=== PATIENT | male | born 1960 | race Caucasian/White ===

== ENCOUNTER → 2018-05-30 09:41 | Outpatient (CLI) | payer OTHER, SELFPAY ==
--- NOTE | 2018-05-30 09:43 | DI.US.S_ITS ---
PROCEDURE: US CAROTID DOPPLER BI INDICATIONS: FACIAL NUMBNESS TECHNIQUE: Color and pulse Doppler interrogation was performed of both carotid systems, with image documentation and velocity measurements. COMPARISON: None. FINDINGS: Stenosis calculations are based on SRU (Society of Radiologists in Ultrasound) criteria. Right side: Brachial blood pressure: 155/92 mm Hg. Common carotid artery peak systolic velocity: 82 cm/sec. Internal carotid artery peak systolic velocity: 79 cm/sec. Internal carotid artery end diastolic velocity: 30 cm/sec. External carotid artery peak systolic velocity: 88 cm/sec. ICA/CCA peak systolic ratio: 1.0. Fang scale imaging description: Mild scattered plaque. Right thyroid nodule measuring up to 1.7 cm. Percent internal carotid artery stenosis: Less than 50%. Vertebral artery: Flow direction is antegrade. Left side: Brachial blood pressure: Not obtained Common carotid artery peak systolic velocity: 86 cm/sec. Internal carotid artery peak systolic velocity: 86 cm/sec. Internal carotid artery end diastolic velocity: 26 cm/sec. External carotid artery peak systolic velocity: 76 cm/sec. ICA/CCA peak systolic ratio: 1.0. Fang scale imaging description: Mild scattered plaque. Percent internal carotid artery stenosis: Less than 50%. Vertebral artery: Flow direction is antegrade. IMPRESSION: Less than 50% bilateral internal carotid artery stenosis. Hypertension and time of examination. Solid right thyroid nodule incompletely evaluated. When clinically feasible recommend thyroid ultrasound. Dictated by: Dhaval DICKSON Interpreted: Consuelo Simpson MD on 05/30/2018 at 12:10 Approved by: Consuelo Simpson MD, PhD on 05/30/2018 at 15:26
== END ==
PROVIDERS: Family Provider Family Medicine; PCP Family Medicine; Visit Provider Family Medicine
DX: R20.0 Anesthesia of skin (principal); I65.23 Occlusion and stenosis of bilateral carotid arteries; E11.9 Type 2 diabetes mellitus without complications; E04.1 Nontoxic single thyroid nodule; Z79.4 Long term (current) use of insulin
CPT/HCPCS: 93880

== ENCOUNTER → 2018-06-17 15:45 | Outpatient (CLI) | payer OTHER, SELFPAY ==
--- NOTE | 2018-06-17 16:00 | DI.US.S_ITS ---
PROCEDURE: US THYROID INDICATIONS: thyroid nodule TECHNIQUE: Real-time scanning was performed of the thyroid gland, with image documentation. COMPARISON: [facility], US, US CAROTID DOPPLER BI, 05/30/2018, 10:07. FINDINGS: Right: Thyroid lobe measures 5.2 x 1.3 x 2.0 cm, and is homogeneous in echotexture. Left: Thyroid lobe measures 5.4 x 1.1 x 1.8 cm, and is homogenous in echotexture. Isthmus: 3.0 mm thick. Nodule number: 1 Location: Right superior Size: 1.4 x 0.9 x 1.6 cm. Composition: Solid Echogenicity: Hypoechoic Shape: wider than tall. Margins: Smooth Echogenic foci: None Total points: 4 ACR TI-RADS category: Moderately suspicious Nodule number: 2 Location: Right inferior Size: 0.5 x 0.3 cm. Composition: Cystic Echogenicity: Anechoic Shape: wider than tall. Margins: Smooth Echogenic foci: None Total points: 0 ACR TI-RADS category: Benign IMPRESSION: Right thyroid nodules as above. Recommend continued followup as detailed below. ACR TI-RADS definitions and recommendations: TI-RADS 1 (benign): 0 points. FNA not needed. TI-RADS 2 (not suspicious): 2 points. FNA not needed. TI-RADS 3 (mildly suspicious): 3 points. * FNA if 2.5 cm or larger, follow up if 1.5 cm or larger (at 1, 3, and 5 years). TI-RADS 4 (moderately suspicious): 4-6 points. * FNA if 1.5 cm or larger, follow up if 1 cm or larger (at 1, 2, 3, and 5 years). TI-RADS 5 (highly suspicious): 7 points or more. * FNA if 1 cm or larger, follow up if 0.5 cm or larger (every year for 5 years). Dictated by: Dhaval DICKSON Interpreted: Alberto An MD on 06/17/2018 at 16:45 Approved by: Alberto An M.D. on 06/17/2018 at 17:12
== END ==
PROVIDERS: PCP Family Medicine; Visit Provider Family Medicine
DX: E04.2 Nontoxic multinodular goiter (principal)
CPT/HCPCS: 76536

== ENCOUNTER → 2018-07-01 13:53 | Outpatient (CLI) | payer OTHER, SELFPAY ==
--- NOTE | 2018-07-01 | PATH_ITS ---
Note [facility] Accession Number: [id number] TESTS RESULT FLAG UNITS REF RANGE LAB Clinician Provided Cytology Information No. of containers..01 ThinPrep Vial No. of containers..10 Previously Prepared Cytology Slide 01 RIGHT THYROID NODULE Clinician ICD10: 01 E11.69 E11.9 E78.5 I10 Z79.4 R20.0 DIAGNOSIS: 02 RIGHT THYROID NODULE: BETHESDA CATEGORY I. NONDIAGNOSTIC: VIRTUALLY ACELLULAR SPECIMEN. Pathologist ICD10: 02 E04.1 01 Medical History of Diabetes mellitus (Chronic 2014), Skin cancer (Chronic), Anemia (resolved 1984), Hemodialysis (resoved 1985), Kidney failure (resolved 1994), Melanoma (resolved 1994), and TIA(transient ischemic attack) (resolved 1998). 02 Lizy Birmingham MD, Pathologist NPI- [id number] Donovan Oviedo, [place] ([facility]) 01 30 CC, COLORLESS, CLEAR Also, received 5 alcohol fixed and 5 quick stained slides. /[facility] FLAG LEGEND: L-Low Normal,H-High Normal,LL-Alert Low,HH-Alert High <-Panic Low,>-Panic High,A-Abnormal,AA-Critical Abnormal Performed at: 01 =Z [facility] [address] [place] [address], [place] [address] Idrsi Ortiz MD, [address] [facility] [place] [address] [place] [id number] Lizy Birmingham MD, Performed at: [address] [facility] [address], [place], [place] [id number] MD Idris Ortiz MD Phone: [phone]
--- NOTE | 2018-07-01 13:54 | DI.US.S_ITS ---
PROCEDURE: US FINE NEEDLE ASPIRATION INDICATIONS: RIGHT NODULE TECHNIQUE: The indications, alternatives, benefits, risks, and complications of the procedure were explained to the patient. Written informed consent was obtained and placed in the chart. The thyroid region was examined sonographically and a site was chosen for ultrasound guided percutaneous sampling. The skin was prepared and draped in the usual fashion, and anesthetized with 1% lidocaine infiltrated from the skin down to the thyroid gland. Multiple passes were then performed, with contents emptied into an appropriate pathology specimen container. A bandage was applied to the area of access at completion of the study. COMPARISON: [facility], US, US THYROID, 06/17/2018, 16:10. FINDINGS: Location(s) of lesion(s) sampled: Right superior thyroid nodule [place]: 25 gauge hypodermic needles. Number of passes: 8 Medications: 1% lidocaine for local anaesthesia. Complications: None. IMPRESSION: Successful ultrasound-guided thyroid nodule fine needle aspiration, with cytology results pending. Please see chart below for management recommendations based on cytology results. [place] [facility] ReportingRecommendationsNon-diagnostic* Repeat US-guided FNA, with on-site cytology evaluation if possible. * Repeated non-diagnostic nodules without high suspicion US features: close observation vs surgical consult. * Consider surgery if nodule has high suspicion US features, grows >20% in 2 dimensions on followup, or patient has clinical risk factors for malignancy. Benign* If nodule has high suspicion US features: repeat US and FNA within 12 months. * If nodule has low to intermediate suspicion US features: repeat US at 12-24 months. If nodule grows (20% increase in at least 2 dimensions, with minimal increase of 2 mm or >50% change in volume), or development of new suspicious US features, then repeat FNA or continue followup. * If nodule has very low suspicion US features: followup US at >24 months. Atypia of undetermined significance, follicular lesion of undetermined significanceRepeat FNA, molecular testing, followup US, or surgical consult.Follicular neoplasm, suspicious for follicular neoplasmSurgical consult; also consider molecular testing. Suspicious for malignancySurgical consult.MalignantSurgical consult. Dictated by: Rex Santoro M.D. on 07/01/2018 at 16:04 Approved by: Rex Santoro M.D. on 07/01/2018 at 16:09
== END ==
PROVIDERS: PCP Family Medicine; Visit Provider Family Medicine
DX: E04.1 Nontoxic single thyroid nodule (principal)
CPT/HCPCS: 10022; 76942

== ENCOUNTER 2018-08-02 13:59 | Emergency (ER) | payer OTHER, SELFPAY ==
[2018-08-02 14:04] VITALS: BP 150/94; PULSE 89; RESP 15; TEMP 36; O2SAT 96; BMI 32.5
--- NOTE | 2018-08-02 14:37 | ED_ITS ---
HPI - Extremity Problem General Chief complaint: Extremity Problem,Nontraumatic Stated complaint: L arm pain Time Seen by Provider: 08/02/18 14:16 Source: patient Mode of arrival: ambulatory Limitations: no limitations History of Present Illness HPI Narrative: Patient is a 58-year-old male who presents with all left arm intermittent pain. He is actually at his PCP for routine evaluation of this intermittent left arm pain. He has a history of a left brachial aneurysm. He wakes up multiple times in the night with all left arm pain. He has no numbness or tingling he has no hand weakness.. He does not have a radial pulse at baseline at his PCP they did not feel in ulnar pulse and sent him to the ED for further evaluation. His hand is warm. And he has no complaints. Related Data Home Medications Medication Instructions Recorded Confirmed calcium carbonate 1 tab PO DAILY #0 03/12/17 08/02/18 vitamin B complex [B 1 tab PO DAILY #0 03/12/17 08/02/18 Complex-Vitamin B12] cholecalciferol (vitamin D3) 4,000 unit PO DAILY #0 09/10/17 08/02/18 [Vitamin D3] aspirin 325 mg PO DAILY 08/02/18 08/02/18 atorvastatin 40 mg PO BEDTIME 08/02/18 08/02/18 glimepiride 2 mg tablet 2 mg PO QAM 08/02/18 08/02/18 insulin glargine [Basaglar KwikPen 56 unit SUBCUT QPM 08/02/18 08/02/18 U-100 Insulin] tacrolimus 2 mg PO QPM 08/02/18 08/02/18 tacrolimus [Prograf] 3 mg PO QAM 08/02/18 08/02/18 vitamin E 1 cap PO DAILY 08/02/18 08/02/18 Previous Rx's Medication Instructions Recorded metformin 1,000 mg PO BIDCC #180 tab 05/30/18 lorazepam 0.5 mg tablet 0.5 mg PO BID PRN #10 tab 07/14/18 Allergies Allergy/AdvReac Type Severity Reaction Status Date / Time vancomycin [VANCOMYCIN] Allergy Intermediate Verified 08/02/18 14:03 Review of Systems Review of Systems All systems reviewed & are unremarkable except as noted in HPI and below Constitutional Denies chills, Denies fever(s), Denies lethargy and Denies weakness Eyes Denies change in vision, Denies eye discharge, Denies irritation and Denies loss of vision ENT Ears, Nose, Mouth, and Throat: Denies change in voice, Denies neck pain and Denies sore throat Cardiovascular Denies chest pain, Denies irregular heart rhythm, Denies lightheadedness, Denies palpitations, Denies dyspnea, Denies dyspnea on exertion and Denies orthopnea Respiratory Denies cough, Denies dyspnea, Denies dyspnea on exertion and Denies wheezing Gastrointestinal Gastrointestinal: Denies abdominal pain, Denies change in bowel habits, Denies diarrhea, Denies nausea and Denies vomiting Musculoskeletal Reports as per HPI and Denies neck pain Integumentary/Breasts Denies pruritus, Denies erythema, Denies rash and Denies wounds Neurologic Denies loss of vision and Denies weakness Endocrine Denies palpitations Allergic/Immunologic Denies wheezing [facility] Social History Smoking Status: Never smoker Exam Initial Vital Signs Initial Vital Signs: Vital Signs Temperature 96.8 F L 08/02/18 14:04 Pulse Rate 89 08/02/18 14:04 Respiratory Rate 15 08/02/18 14:04 Blood Pressure 150/94 H 08/02/18 14:04 Pulse Oximetry 96 08/02/18 14:04 GENERAL: Well-appearing, well-nourished and in no acute distress. HEENT: Head atraumatic,EOMI, pupils reactive, neck is supple full range of motion CARDIOVASCULAR: Regular rate and rhythm without murmurs, rubs or gallops. RESPIRATORY: Breath sounds equal bilaterally, no wheezes rales or rhonchi. ABDOMEN: Soft, nontender. Normoactive bowel sounds all 4 quadrants. No guarding or rebound. EXTREMITIES: Normal range of motion, no clubbing or edema. Neurovascularly intact Left arm scarring is noted no radial pulse but strong bounding ulnar pulse. Full range of motion of hand hand is warm with cap refill less than 2 sec NEUROLOGICAL: Alert and oriented x4.Normal gait and speech. SKIN: Warm, dry, no laceration, no petechiae, no rashes or lesions. Course Orders Ordered: ED Orders 08/02/18 14:37 US arterial duplex UE LT Stat Vital Signs - 8 hr 08/02/18 14:04 08/02/18 15:29 Temperature 96.8 F L Pulse Rate 89 84 Respiratory Rate 15 14 Blood Pressure 150/94 H Blood Pressure [Right Arm] 140/82 Pulse Oximetry 96 95 MDM - Extremity (Nontraumatic) Imaging Data US arterial: Radiologist's impression: PROCEDURE: US ARTERIAL DUPLEX UE LT COMPARISON: None. INDICATIONS: pain history of brachial aneurysm FINDINGS: Clinically reported greater saphenous vein graft in the region of the left brachial artery, status post aneurysm repair. There is mild dilatation of the distal anastomosis. The graft appears patent with no thrombus or occlusive embolism. There are triphasic waveforms within the left subclavian, axillary and brachial artery measuring 92, 51 and 43 cm/second. IMPRESSION: Patent left brachial graft. Dictated by: Alberto An M.D. on 08/02/2018 at 16:14 MDM Narrative Medical decision making narrative: No sign of ischemia a patient's hand is warm patent graft. Possible peripheral neuropathy. Recommended cervical imaging though he does not have neck pain. May require chest imaging if nothing is found. Discharge Plan Departure Patient Disposition: Home Clinical Impression: Peripheral neuropathy Discharge Date/Time: 08/02/18 16:04 Interventions: ED Discharge Assessment Last Done: 08/02/18 16:03 Instructions: DI for Peripheral Neuropathy Activity Restrictions/Additional Instructions: CATHY CEVALLOS!! 7 SWANS A SWIMMING or 6 GEESE A LAYING ?? NOT SURE WHAT DAY WE ARE ON I AM JAIN :) *You have been diagnosed with peripheral neuropathy *What to do: The at this time artery appears intact and patent. Recommend looking at neck or other imaging *Continue to take medications as directed *Follow up with your primary care provider in 2-3 days *Return to ER if you should have NUMBNESS, TINGLING, WEAKNESS OF THE HAND, INCREASED PAIN OR any new, worsening or concerning symptoms Prescriptions: No Action vitamin B complex [B Complex-Vitamin B12] 1 EACH tablet 1 tab PO DAILY Qty: 0 RF: 0 calcium carbonate 1 tab PO DAILY Qty: 0 RF: 0 cholecalciferol (vitamin D3) [Vitamin D3] 4,000 UNIT capsule 4,000 unit PO DAILY Qty: 0 RF: 0 metformin 1,000 mg tablet 1,000 mg PO BIDCC Qty: 180 RF: 1 lorazepam 0.5 mg tablet 0.5 mg PO BID PRN (Reason: anxiety) Qty: 10 RF: 0 glimepiride 2 mg tablet 2 mg PO QAM RF: 0 atorvastatin 40 mg tablet 40 mg PO BEDTIME RF: 0 aspirin 325 mg Tablet 325 mg PO DAILY RF: 0 tacrolimus 1 mg capsule 2 mg PO QPM RF: 0 vitamin E 1 cap PO DAILY RF: 0 tacrolimus [Prograf] 1 mg capsule 3 mg PO QAM RF: 0 insulin glargine [Basaglar KwikPen U-100 Insulin] 100 unit/mL (3 mL) insulin pen 56 unit SUBCUT QPM RF: 0 Referrals: Darcie Preston DO [Primary Care Provider] -
[2018-08-02 15:29] VITALS: BP 140/82; PULSE 84; RESP 14; O2SAT 95
== END 2018-08-02 16:04 | disposition home or self-care (01) ==
PROVIDERS: Emergency Provider Emergency Medicine; PCP Family Medicine
DX: G62.9 Polyneuropathy, unspecified (principal)
CPT/HCPCS: 93931; 99282; 99284

== ENCOUNTER → 2018-08-08 12:27 | Outpatient (CLI) | payer OTHER, SELFPAY ==
--- NOTE | 2018-08-08 | PATH_ITS ---
Note [facility] Accession Number: [id number] TESTS RESULT FLAG UNITS REF RANGE LAB Clinician Provided Cytology Information No. of containers..01 ThinPrep Vial No. of containers..20 Previously Prepared Cytology Slide 01 RIGHT THYROID NODULE Clinician ICD10: 01 N54.52 DIAGNOSIS: 02 RIGHT THYROID NODULE NEGATIVE FOR MALIGNANT CELLS. BETHESDA CATEGORY II - BENIGN. SPECIMEN CONSISTS OF BENIGN FOLLICULAR CELLS, RARE HEMOSIDERIN-LADEN MACROPHAGES, SCANT COLLOID, AND ABUNDANT BLOOD. THIS PATTERN IS CONSISTENT WITH A BENIGN FOLLICULAR NODULE. Pathologist ICD10: 02 E04.1 02 Lavon Worthington MD, PhD, Pathologist NPI- [id number] Donovan Oviedo, [place] ([facility]) 01 30 CC, RED, CLOUDY RECEIVED: 10 ALCOHOL FIXED AND 10 QUICK STAINED SLIDES. /[facility] FLAG LEGEND: L-Low Normal,H-High Normal,LL-Alert Low,HH-Alert High <-Panic Low,>-Panic High,A-Abnormal,AA-Critical Abnormal Performed at: 01 =Z [facility] [address], [place] [address] Idris Ortiz MD, 02 [facility] [place] [address] [place] [phone] Lizy Birmingham MD, Performed at: 01 [facility] [address], [place], [place] [id number] MD Idris Ortiz MD Phone: [phone]
--- NOTE | 2018-08-08 12:29 | DI.US.S_ITS ---
PROCEDURE: US FINE NEEDLE ASPIRATION INDICATIONS: Thyroid Nodule. Repeat fine needle aspiration of a superior right thyroid gland nodule due to inadequate initial sample per pathology. TECHNIQUE: The indications, alternatives, benefits, risks, and complications of the procedure were explained to the patient. Written informed consent was obtained and placed in the chart. The thyroid region was examined sonographically and a site was chosen for ultrasound guided percutaneous sampling. The skin was prepared and draped in the usual fashion, and anesthetized with 1% lidocaine infiltrated from the skin down to the thyroid gland. Multiple passes were then performed, with contents emptied into an appropriate pathology specimen container. A bandage was applied to the area of access at completion of the study. COMPARISON: [facility], US, US THYROID, 06/17/2018, 16:10. [facility], US, US FINE NEEDLE ASPIRATION, 07/01/2018, 13:58. FINDINGS: Location(s) of lesion(s) sampled: Right superior thyroid gland nodule. [place]: 25 gauge hypodermic needles. Number of passes: 10, performed with syringe suction. Medications: 1% lidocaine for local anaesthesia. Complications: None. IMPRESSION: Successful ultrasound-guided thyroid nodule fine needle aspiration, with cytology results pending. Please see chart below for management recommendations based on cytology results. [place] [facility] ReportingRecommendationsNon-diagnostic* Repeat US-guided FNA, with on-site cytology evaluation if possible. * Repeated non-diagnostic nodules without high suspicion US features: close observation vs surgical consult. * Consider surgery if nodule has high suspicion US features, grows >20% in 2 dimensions on followup, or patient has clinical risk factors for malignancy. Benign* If nodule has high suspicion US features: repeat US and FNA within 12 months. * If nodule has low to intermediate suspicion US features: repeat US at 12-24 months. If nodule grows (20% increase in at least 2 dimensions, with minimal increase of 2 mm or >50% change in volume), or development of new suspicious US features, then repeat FNA or continue followup. * If nodule has very low suspicion US features: followup US at >24 months. Atypia of undetermined significance, follicular lesion of undetermined significanceRepeat FNA, molecular testing, followup US, or surgical consult.Follicular neoplasm, suspicious for follicular neoplasmSurgical consult; also consider molecular testing. Suspicious for malignancySurgical consult.MalignantSurgical consult. Dictated by: Vel Guadalupe M.D. on 08/08/2018 at 17:05 Approved by: Vel Guadalupe M.D. on 08/08/2018 at 17:08
== END ==
PROVIDERS: PCP Family Medicine; Visit Provider Family Medicine
DX: E04.1 Nontoxic single thyroid nodule (principal)
CPT/HCPCS: 10022; 76942

== ENCOUNTER → 2018-10-21 10:30 | Outpatient (CLI) | payer OTHER, SELFPAY ==
[2018-10-21 11:23] LABS: Add Manual Diff / Slide Review NO; Basophils Absolute Auto 0 /uL (0-100); Basophils Percent Auto 0.4 % (0-2); Eosinophils Absolute Auto 100 /uL (0-450); Eosinophils Percent Auto 1.4 % (2-4); Hematocrit 48.3 % (41-53); Hemoglobin 16.5 g/dL (13.5-17.5); Lymphocytes Absolute Auto 1900 /uL (1100-4500); Lymphocytes Percent Auto 21.2 % (25-40); Mean Corpuscular HGB Conc 34.2 % (30-36); Mean Corpuscular Volume 90.8 fL (80-100); Monocytes Absolute Auto 800 /uL (0-900); Monocytes Percent Auto 8.4 % (3-14); Neutrophils Absolute Auto 6200 /uL (1500-7000); Neutrophils Percent Auto 68.6 % (50-75); Platelet Count 280 X10^3/uL (150-400); Red Blood Cell Count 5.32 X10^6/uL (4.5-5.9); Red Cell Distribution Width 13.5 % (11.6-14.8); White Blood Cell Count 9.1 X10^3/uL (4.5-11.0)
[2018-10-21 11:41] LABS: Alanine Aminotransferase 50 IU/L (21-72); Albumin 4.5 g/dL (3.5-5.0); Albumin Globulin Ratio 1.5 (1.0-2.8); Alkaline Phosphatase 47 U/L (38-126); Aspartate Aminotransferase 27 IU/L (17-59); BUN Creatinine Ratio 18.9 (6-22); Bilirubin Total 1.1 mg/dL (0.2-1.3); Blood Urea Nitrogen 17 mg/dL (9-20); Calcium 9.8 mg/dL (8.4-10.2); Carbon Dioxide 25 mmol/L (22-32); Chloride 100 mmol/L (98-107); Cholesterol 156 mg/dL (140-199); Estimated Glomerular Filt Rate > 60.0 mL/min (>60); Globulin 3.1 g/dL (1.7-4.1); Glucose 238 mg/dL (70-100); HDL Cholesterol 34 mg/dL (40-60); HEMOLYSIS < 15 (0-50); LDL Cholesterol Calculated 65 mg/dL (<100); Magnesium 1.3 mg/dL (1.6-2.3); Phosphorous 3.6 mg/dL (2.5-4.5); Potassium 4.5 mmol/L (3.4-5.1); Sodium 138 mmol/L (137-145); Total Protein 7.6 g/dL (6.3-8.2); Triglycerides 286 mg/dL (35-150)
[2018-10-21 11:59] LABS: Vitamin D 25 Hydroxy (D3) 39.5 ng/mL (30.0-100.0)
[2018-10-24 18:17] LABS: Tacrolimus 7.4 mcg/L (5.0-20.0)
[2018-10-25 13:53] LABS: Parathyroid Hormone Int 48 pg/mL (14-64)
== END ==
PROVIDERS: PCP Family Medicine; Visit Provider Internal Medicine
DX: Z94.0 Kidney transplant status (principal); Z48.298 Encounter for aftercare following other organ transplant; T86.40 Unspecified complication of liver transplant; E83.40 Disorders of magnesium metabolism, unspecified
CPT/HCPCS: 36415; 80053; 80061; 80197; 82306; 83735; 83970; 84100; 85025

== ENCOUNTER → 2019-08-04 13:11 | Outpatient (CLI) | payer OTHER, SELFPAY ==
[2019-08-04 13:53] LABS: Add Manual Diff / Slide Review NO; Basophils Absolute Auto 100 /uL (0-100); Basophils Percent Auto 0.7 % (0-2); Eosinophils Absolute Auto 100 /uL (0-450); Eosinophils Percent Auto 1.5 % (2-4); Hematocrit 44.7 % (41-53); Hemoglobin 15.7 g/dL (13.5-17.5); Lymphocytes Absolute Auto 2200 /uL (1100-4500); Lymphocytes Percent Auto 27.3 % (25-40); Mean Corpuscular HGB Conc 35.1 % (30-36); Mean Corpuscular Volume 91.4 fL (80-100); Monocytes Absolute Auto 700 /uL (0-900); Monocytes Percent Auto 8.5 % (3-14); Neutrophils Absolute Auto 5000 /uL (1500-7000); Platelet Count 259 X10^3/uL (150-400); Red Blood Cell Count 4.89 X10^6/uL (4.5-5.9); Red Cell Distribution Width 13.2 % (11.6-14.8); White Blood Cell Count 8.1 X10^3/uL (4.5-11.0)
[2019-08-04 14:03] LABS: Hemoglobin A1C% w Est Avg Glu 6.7 % (4.0-6.0)
[2019-08-04 14:04] LABS: Alanine Aminotransferase 35 IU/L (<50); Albumin 4.3 g/dL (3.5-5.0); Albumin Globulin Ratio 1.6 (1.0-2.8); Alkaline Phosphatase 47 U/L (38-126); Aspartate Aminotransferase 28 IU/L (17-59); BUN Creatinine Ratio 14.4 (6-22); Blood Urea Nitrogen 13 mg/dL (9-20); Calcium 9.6 mg/dL (8.4-10.2); Carbon Dioxide 29 mmol/L (22-32); Chloride 101 mmol/L (98-107); Estimated Glomerular Filt Rate > 60.0 mL/min (>60); Globulin 2.7 g/dL (1.7-4.1); Glucose 165 mg/dL (70-100); HEMOLYSIS < 15 (0-50); Potassium 4.2 mmol/L (3.4-5.1); Sodium 139 mmol/L (137-145)
[2019-08-04 15:26] LABS: Creatinine Urine Random 35.7 mg/dL
[2019-08-04 15:30] LABS: Microalbumi Creatinin Ratio Ur 103.6 ug/mg CR (<30); Microalbumin Urine Random 3.7 mg/dL (0-1.6)
== END ==
PROVIDERS: PCP Family Medicine; Visit Provider Family Medicine
DX: E11.69 Type 2 diabetes mellitus with other specified complication (principal); E78.5 Hyperlipidemia, unspecified; I10 Essential (primary) hypertension; Z79.4 Long term (current) use of insulin; Z94.0 Kidney transplant status
CPT/HCPCS: 36415; 80053; 82043; 82570; 83036; 85025

== ENCOUNTER → 2019-09-21 13:56 | Outpatient (CLI) | payer OTHER, SELFPAY ==
--- NOTE | 2019-09-21 13:58 | DI.RAD.S_ITS ---
PROCEDURE: XR CHEST 2V INDICATIONS: screening TECHNIQUE: 2 views of the chest were acquired. COMPARISON: [facility], , CHEST 2 VIEW, 07/16/2017, 15:07. FINDINGS: Surgical changes and devices: None. Lungs and pleura: Lungs are clear. No pleural effusions or pneumothorax. Mediastinum: Mediastinal contours are normal. Heart size is normal. Bones and chest wall: No suspicious bony abnormalities. Soft tissues appear unremarkable. IMPRESSION: No acute disease Dictated by: Alberto An M.D. on 09/21/2019 at 15:12 Approved by: Alberto An M.D. on 09/21/2019 at 15:13
== END ==
PROVIDERS: PCP Family Medicine; Referring Provider Family Medicine; Visit Provider Family Medicine
DX: Z13.89 Encounter for screening for other disorder (principal); Z94.0 Kidney transplant status; R29.890 Loss of height; E11.9 Type 2 diabetes mellitus without complications; Z79.899 Other long term (current) drug therapy
CPT/HCPCS: 71046; 77080

== ENCOUNTER → 2021-01-03 09:03 | Outpatient (CLI) | payer OTHER, SELFPAY ==
[2021-01-03 09:35] LABS: BUN Creatinine Ratio 26.6 (6-22); Blood Urea Nitrogen 17 mg/dL (9-20); Estimated Glomerular Filt Rate > 60.0 mL/min (>60)
--- NOTE | 2021-01-03 10:09 | DI.CT.S_ITS ---
PROCEDURE: CT ANGIO UE LT INDICATIONS: Brachial artery aneurysm TECHNIQUE: After the administration of intravenous contrast, 2.5 mm sections acquired from the aortic arch through the symptomatic arm, with optional delayed image acquisition from the elbows to the fingers. 3-dimensional maximum intensity projection (MIP) coronal and sagital reformats, and/or 3-dimensional volume rendering reformatting was then performed. For radiation dose reduction, the following was used: automated exposure control. COMPARISON: [facility], US, US ARTERIAL DUPLEX UE LT, 08/02/2018, 15:05. [facility], US, US ARTERIAL UPPER EXTREMITY DOPPLER LEFT, 12/10/2020, 11:30. FINDINGS: Image quality: Excellent. Thoracic aorta: Borderline aneurysmal, measuring 4.0 cm on lowest slice obtained. No significant plaque. Great vessels: Classic three-vessel arch anatomy. Great vessel origins are widely patent. Left subclavian is widely patent throughout. Upper extremity: The left axillary artery and brachial artery is widely patent. In the distal brachial artery, there is tortuosity and the presence of an aneurysm, which has moderate thrombus. The lumen is widely patent. The aneurysm measures approximately 2.6 cm in diameter. There is no stenosis involving the brachial artery. The radial artery is occluded in its entirety. The ulnar artery is widely patent and provides the arch. 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 Occluded radial artery. Ulnar artery is widely patent. Dictated by: Fortunato Ochoa M.D. on 01/03/2021 at 13:29 Approved by: Fortunato Ochoa M.D. on 01/03/2021 at 13:39
== END ==
PROVIDERS: PCP Family Medicine; Referring Provider Nurse Practitioner; Visit Provider Nurse Practitioner
DX: Z01.812 Encounter for preprocedural laboratory examination (principal); I72.1 Aneurysm of artery of upper extremity; I71.4 Abdominal aortic aneurysm, without rupture; I70.208 Unspecified atherosclerosis of native arteries of extremities, other extremity
CPT/HCPCS: 36415; 73206; 82565; 84520; Q9967

== ENCOUNTER → 2021-03-03 09:00 | Outpatient (CLI) | payer OTHER, SELFPAY ==
[2021-03-03 09:36] LABS: COVID19 -Nasal RAPID Negative (Negative)
== END ==
PROVIDERS: PCP Family Medicine; Referring Provider Internal Medicine; Visit Provider Internal Medicine
DX: Z20.822 Contact with and (suspected) exposure to COVID-19 (principal)
CPT/HCPCS: 87635

== ENCOUNTER → 2021-04-05 11:05 | Outpatient (CLI) | payer OTHER, SELFPAY ==
[2021-04-05 13:38] LABS: COVID19 - ADMIT (NP swab/PCR) Negative (Negative)
== END ==
PROVIDERS: PCP Family Medicine; Referring Provider Physician Assistant; Visit Provider Physician Assistant
DX: Z20.822 Contact with and (suspected) exposure to COVID-19 (principal)
CPT/HCPCS: U0003

== ENCOUNTER → 2021-05-12 08:23 | Outpatient (CLI) | payer OTHER, SELFPAY ==
[2021-05-12 12:23] LABS: COVID19 -Nasal RAPID Negative (Negative)
== END ==
PROVIDERS: PCP Family Medicine; Visit Provider Nurse Practitioner Family
DX: Z20.822 Contact with and (suspected) exposure to COVID-19 (principal)
CPT/HCPCS: 87635

== ENCOUNTER → 2021-05-13 06:45 | Day surgery (SDC) | payer OTHER, SELFPAY ==
[2021-05-13] MEDS: PROPARACAINE 0.5% OPHTH SOL 2 DROPS EYE-OP (07:10)
[2021-05-13] MEDS: CATARACT EYE COMPOUND (10 DROPS/SYRINGE) 3 DROPS EYE-OP (07:10)
[2021-05-13 07:12] VITALS: BP 148/98; PULSE 86; RESP 16; TEMP 37.1; O2SAT 98; BMI 31.8
--- NOTE | 2021-05-13 08:07 | PM.PREOP ---
Pre-operative Note Interval Note History & Physical reviewed/Exam performed by Physician: Yes Changes to H&P: No
--- NOTE | 2021-05-13 08:07 | PM.OP.1 ---
Operative Date/Time/Diagnoses Pre-op diagnosis: Nuclear Cataract Left eye Post-op diagnosis: same Procedure & Clinicians Same procedure as scheduled: Yes Surgeon: Aj Lynn Anesthesia Type: MAC +/- and Sedation Operative Notes Procedure in detail: Patient brought to the operating suite. Tetracaine drops placed in the left eye. Patient was prepped and draped in sterile manner. Wire lid speculum was placed in the eye. Betadine drops were placed on the eye. This was irrigated. Lidocaine jelly was placed on the eye. A paracentesis port was created with a side-port blade. 0.1 mL 1% preservative free lidocaine was injected into the anterior chamber. The anterior chamber was deepened with viscoelastic. 2.6 mm keratome was used to create a temporal clear corneal incision. Cystotome and Utrata forceps were used to create continuous tear capsulorrhexis. Balanced salt solution was used to hydro dissect the nucleus. The phacoemulsification handpiece was inserted and the nucleus was removed using the stop and chop technique. The irrigation aspiration handpiece was inserted and the remaining cortex was removed. Anterior chamber was deepened with viscoelastic. An Castro DIB00 intraocular lens with a power of 20.5 was injected into the capsular bag. Irrigation aspiration handpiece was inserted and the remaining viscoelastic was removed. Incision was hydrated with balanced salt solution and found to be leak free with pressure with Weck-Ryanne sponges. 0.1 mL Vigamox injected anterior chamber. 0.3 mL Kenalog 10 mg was injected subconjunctivally. Lid speculum was removed. The patient left the operating room in excellent condition. Complications: none Post-operative Condition: stable Disposition: same day surgery
[2021-05-13] MEDS: HYALURONATE SODIUM 30 MG-10 MG/ML SYRINGES 1 BOX INTRAOCULA (08:26)
[2021-05-13] MEDS: LIDOCAINE 2% (GLYDO) 6 ML GEL TOP (08:27)
[2021-05-13] MEDS: PHENYLEPHRINE/LIDOCAINE VIAL (OR) 0.2 ML EYE-OP (08:27)
[2021-05-13] MEDS: MOXIFLOXACIN INJ 4 MG/0.8 ML VIAL 0.5 MG EYE-OP (08:27)
[2021-05-13] MEDS: TETRACAINE 0.5% OPHTH DROPS 4 ML 2 DROPS EYE-OP (08:27)
[2021-05-13] MEDS: BALANCED SALT IRRIG SOLN NO.2 500 ML, EPINEPHrine 1 MG IRR (08:28)
[2021-05-13] MEDS: TRIAMCINOLONE 50 MG/5 ML VIAL INJ (08:28)
[2021-05-13 08:40] VITALS: BP 118/78; PULSE 84; RESP 14; TEMP 36.1; O2SAT 95
[2021-05-13 08:45] VITALS: BP 118/74; PULSE 82; RESP 16; TEMP 36.2; O2SAT 96
== END | disposition home or self-care (01) ==
PROVIDERS: PCP Family Medicine; Referring Provider Ophthalmology; Visit Provider Ophthalmology
PROC: (CPT 66984; principal; 2021-05-13 08:15)
DX: H25.12 Age-related nuclear cataract, left eye (principal); E11.9 Type 2 diabetes mellitus without complications; Z79.84 Long term (current) use of oral hypoglycemic drugs; I10 Essential (primary) hypertension; E78.5 Hyperlipidemia, unspecified; Z86.73 Personal history of transient ischemic attack (TIA), and cerebral infarction without residual deficits
CPT/HCPCS: 66984; J0171; J2250; J2704; J3301

== ENCOUNTER → 2021-05-26 08:38 | Outpatient (CLI) | payer OTHER, SELFPAY ==
[2021-05-26 11:36] LABS: COVID19 -Nasal RAPID Negative (Negative)
== END ==
PROVIDERS: PCP Family Medicine; Visit Provider Nurse Practitioner Family
DX: Z20.822 Contact with and (suspected) exposure to COVID-19 (principal); Z01.812 Encounter for preprocedural laboratory examination
CPT/HCPCS: 87635

== ENCOUNTER 2021-05-27 07:07 | Day surgery (SDC) | payer OTHER, SELFPAY ==
[2021-05-27] MEDS: CATARACT EYE COMPOUND (10 DROPS/SYRINGE) 3 DROPS EYE-OP (07:48)
[2021-05-27] MEDS: PROPARACAINE 0.5% OPHTH SOL 2 DROPS EYE-OP (07:48)
[2021-05-27 07:49] VITALS: BP 145/96; PULSE 85; RESP 18; TEMP 36.3; O2SAT 97; BMI 30.9
--- NOTE | 2021-05-27 08:33 | PM.PREOP ---
Pre-operative Note Interval Note History & Physical reviewed/Exam performed by Physician: Yes Changes to H&P: No
--- NOTE | 2021-05-27 08:34 | PM.OP.1 ---
Operative Date/Time/Diagnoses Pre-op diagnosis: Nuclear cataract right eye Procedure & Clinicians Procedure: Cataract Surgery Same procedure as scheduled: Yes Surgeon: Aj Lynn Anesthesia Type: MAC +/- and Sedation Operative Notes Procedure in detail: Patient brought to the operating suite. Tetracaine drops placed in the right eye. Patient was prepped and draped in sterile manner. Wire lid speculum was placed in the eye. Betadine drops were placed on the eye. This was irrigated. Lidocaine jelly was placed on the eye. A paracentesis port was created with a side-port blade. 0.1 mL 1% preservative free lidocaine was injected into the anterior chamber. The anterior chamber was deepened with viscoelastic. 2.6 mm keratome was used to create a temporal clear corneal incision. Cystotome and Utrata forceps were used to create continuous tear capsulorrhexis. Balanced salt solution was used to hydro dissect the nucleus. The phacoemulsification handpiece was inserted and the nucleus was removed using the stop and chop technique. The irrigation aspiration handpiece was inserted and the remaining cortex was removed. Anterior chamber was deepened with viscoelastic. An Castro DIB00 intraocular lens with a power of 20.0 was injected into the capsular bag. Irrigation aspiration handpiece was inserted and the remaining viscoelastic was removed. Incision was hydrated with balanced salt solution and found to be leak free with pressure with Weck-Ryanne sponges. 0.1 mL Vigamox injected anterior chamber. 0.3 mL Kenalog 10 mg was injected subconjunctivally. Lid speculum was removed. The patient left the operating room in excellent condition. Complications: none Post-operative Condition: stable Disposition: same day surgery
[2021-05-27] MEDS: HYALURONATE SODIUM 30 MG-10 MG/ML SYRINGES 1 BOX INTRAOCULA (08:51)
[2021-05-27] MEDS: LIDOCAINE 2% (GLYDO) 6 ML GEL TOP (08:51)
[2021-05-27] MEDS: MOXIFLOXACIN INJ 4 MG/0.8 ML VIAL 0.5 MG EYE-OP (08:51)
[2021-05-27] MEDS: PHENYLEPHRINE/LIDOCAINE VIAL (OR) 0.2 ML EYE-OP (08:52)
[2021-05-27] MEDS: TETRACAINE 0.5% OPHTH DROPS 4 ML 2 DROPS EYE-OP (08:52)
[2021-05-27] MEDS: TRIAMCINOLONE 50 MG/5 ML VIAL INJ (08:52)
[2021-05-27] MEDS: BALANCED SALT IRRIG SOLN NO.2 500 ML, EPINEPHrine 1 MG IRR (08:53)
[2021-05-27 09:09] VITALS: BP 123/79; PULSE 82; RESP 16; TEMP 37.2; O2SAT 96
== END 2021-05-27 09:45 | disposition home or self-care (01) ==
PROVIDERS: PCP Family Medicine; Referring Provider Ophthalmology; Visit Provider Ophthalmology
PROC: (CPT 66984; principal; 2021-05-27 08:45)
DX: H25.11 Age-related nuclear cataract, right eye (principal); E11.9 Type 2 diabetes mellitus without complications; I10 Essential (primary) hypertension; Z86.73 Personal history of transient ischemic attack (TIA), and cerebral infarction without residual deficits; Z94.0 Kidney transplant status; Z79.84 Long term (current) use of oral hypoglycemic drugs
CPT/HCPCS: 66984; J0171; J2250; J3301

== ENCOUNTER → 2021-07-14 10:26 | Outpatient (CLI) | payer OTHER, SELFPAY ==
[2021-07-14 13:07] LABS: COVID19 -Nasal RAPID Negative (Negative)
== END ==
PROVIDERS: PCP Family Medicine; Referring Provider Internal Medicine Nephrology; Visit Provider Internal Medicine Nephrology
DX: Z20.822 Contact with and (suspected) exposure to COVID-19 (principal)
CPT/HCPCS: 87635

== ENCOUNTER → 2022-02-17 10:37 | Outpatient (CLI) | payer OTHER, SELFPAY ==
[2022-02-17 12:06] LABS: COVID19 -Nasal RAPID Negative (Negative)
== END ==
PROVIDERS: PCP Family Medicine; Visit Provider Surgery
DX: Z20.822 Contact with and (suspected) exposure to COVID-19 (principal); Z01.812 Encounter for preprocedural laboratory examination
CPT/HCPCS: 87635; C9803

== ENCOUNTER 2022-02-18 07:53 | Day surgery (SDC) | payer OTHER, SELFPAY ==
[2022-02-18] VITALS (7 sets, daily range): BP systolic 91–127; BP diastolic 44–84; PULSE 72–82; RESP 10–19; TEMP 36.6–36.7; O2SAT 95–100; BMI 31.1
--- NOTE | 2022-02-18 | PATH_ITS ---
[facility] Accession Number: [id number] . 01 Material submitted: . PART A: colon - ASCENDING COLON POLYP PART B: colon - TRANSVERSE COLON POLYP PART C: rectum - RECTAL COLON POLYP . 01 Diagnosis: A. Ascending Colon, Polyp, Biopsy: Tubular adenoma. . B. Transverse Colon, Polyp, Biopsy: Tubular adenoma. . C. Rectum, Polyp, Biopsy: Inflammatory polyp. Negative for dysplasia and malignancy. MRV 02/23/2022 1247 Local . 01 Electronically signed: . Lizy Birmingham MD, Pathologist NPI- [id number] . 01 Gross description: . Part A: ASCENDING COLON POLYP: Received in formalin is 1 fragment(s) of ballesteros, soft tissue measuring 0.4 x 0.4 x 0.2 cm submitted entirely in 1 cassette(s) Part B: TRANSVERSE COLON POLYP: Received in formalin are 4 fragment(s) of ballesteros, soft tissue measuring 0.8 x 0.5 x 0.1 cm in aggregate submitted entirely in 1 cassette(s) Part C: RECTAL COLON POLYP: Received in formalin are 2 fragment(s) of ballesteros, soft tissue measuring 0.3 x 0.3 x 0.2 cm to 0.2 x 0.1 x 0.1 cm submitted entirely in 1 cassette(s) /CPE 02/19/2022 0451 Local . 01 Pathologist provided ICD-10: D12.2, D12.3 . 01 CPT . 417117, 727759, 481981 Specimen Comment: A courtesy copy of this report has been sent to [phone] Performed at: 01 [facility] [address] [place] [address] [address], [place], [place] [id number] MD Idris Ortiz MD Phone: [phone]
[2022-02-18] MEDS: SODIUM CHLORIDE 0.9% 1,000 ML 70 ML IV (08:36)
--- NOTE | 2022-02-18 08:44 | PM.HP.1 ---
History of Present Illness History of Present Illness Date Patient Seen: 02/18/22 Time Patient Seen: 08:44 Chief complaint: SDC Narrative: Patient is a very pleasant 62-year-old male who presented for colonoscopy. His last colonoscopy was performed in 2016 in [place]. Patient is a recipient of 2 kidney transplants. He is due for colonoscopies every 5 years. He does not have a family history of colon cancer, though his mother and his grandmother had breast cancer that metastasized to her abdomen. He does believe he has had a history of colon polyps. He is overdue for surveillance due to COVID. Patient History Medical History (Updated 11/13/21 @ 17:30 by Darcie Preston DO) Anemia (1984) Diabetes mellitus (2014) History of hemodialysis (1985) Kidney failure (1984) Melanoma (1994) Obesity (BMI 30-39.9) Skin cancer TIA (transient ischemic attack) (1998) Uncontrolled type 2 diabetes mellitus Surgical History Anesthesia History of nephrectomy (1998) Renal transplant, status post (1998) Renal transplant, status post (1988) Family & Social History Family History Mother Cerebrovascular accident (CVA), unspecified mechanism Stomach cancer Brother No problems noted. Brother No problems noted. Father No problems noted. Grandfather Cancer Grandmother No problems noted. Grandfather No problems noted. Grandmother No problems noted. Sister Breast cancer Liver cancer Social History: household members spouse Tobacco & Substance use: Smoking Status Never smoker alcohol intake current alcohol intake frequency a few times a week Substance Use Type does not use Meds Home Medications and Allergies Home Medications Medication Instructions Recorded Confirmed Type calcium carbonate 1 tab PO DAILY ##0 03/12/17 02/18/22 History vitamin B complex (B 1 tab PO DAILY ##0 03/12/17 02/18/22 History Complex-Vitamin B12 tablet) cholecalciferol (vitamin D3) 100 4,000 unit PO DAILY ##0 09/10/17 02/18/22 History mcg (4,000 unit) capsule (Vitamin D3) lorazepam 0.5 mg tablet 0.5 mg PO BID PRN anxiety #10 tabs 07/14/18 02/18/22 Rx aspirin 325 mg tablet 325 mg PO DAILY 08/02/18 02/18/22 History vitamin E 1 cap PO DAILY 08/02/18 02/18/22 History atorvastatin 40 mg tablet See Rx Instructions .Route 08/21/21 02/18/22 Rx .COMPLEX #90 tabs glimepiride 4 mg tablet 4 mg PO DAILY #90 tabs 08/21/21 02/18/22 Rx insulin glargine 100 unit/mL (3 56 unit (0.56 mL) SUBCUT QPM #51 mL 08/21/21 02/18/22 Rx mL) subcutaneous pen (Basaglar KwikPen U-100 Insulin) lisinopril 5 mg tablet See Rx Instructions .Route 08/21/21 02/18/22 Rx .COMPLEX #90 tabs metformin 1,000 mg tablet See Rx Instructions .Route 08/21/21 02/18/22 Rx .COMPLEX #180 tabs sildenafil (pulm.hypertension) 20 See Rx Instructions PO ONCE #30 08/21/21 02/18/22 Rx mg tablet tabs tacrolimus 1 mg capsule, See Rx Instructions PO QAM #450 08/21/21 02/18/22 Rx immediate-release (Prograf) caps semaglutide 1 mg/dose (4 mg/3 mL) 0.25 mg (0.1875 mL) SUBCUT QWEEK 11/13/21 02/18/22 Rx subcutaneous pen injector (Ozempic) #3 mL Allergies Allergy/AdvReac Type Severity Reaction Status Date / Time vancomycin [VANCOMYCIN] Allergy Intermediate Verified 02/18/22 08:06 Review of Systems Review of Systems ROS: Yes All systems reviewed with the patient and are negative except as otherwise documented Exam Vital Signs (past 8 hours): - 02/18/22 08:14 Temperature 97.9 F Pulse Rate 82 Respiratory Rate 16 Blood Pressure 127/84 Pulse Oximetry 100 Oxygen Delivery Method Room Air Oxygen Delivery Method Room Air Const General: cooperative, healthy appearing, comfortable, well developed, well groomed and No acute distress [facility] Head: normocephalic and atraumatic Resp Effort & Inspection: normal respiratory effort and able to speak in complete sentences Auscultation: clear to auscultation bilaterally Cardio Rate: regular rate Rhythm: regular rhythm GI Palpation: soft and hernia (periumbilical) Auscultation: normal bowel sounds Assessment & Plan Assessment & Plan narrative: 1. Personal history colon polyps 2. Chronic immune suppression due to renal transplant, due for colonoscopy every 5 years Colonoscopy today, further recommendations to follow Time Spent With Patient Critical Care time: I spent a total of [] minutes of critical care time on this patient's care today; this time is exclusive of procedural time.
--- NOTE | 2022-02-18 09:38 | PM.OP.COLON ---
Operative Date/Time/Diagnoses Date of procedure: 02/18/22 Time of procedure: 09:00 Procedure Notes Procedure in detail: Surgeon: Lyly Duckworth DO Procedure: Colonoscopy with polypectomy and biopsy Preoperative diagnosis: 1. Personal history colon polyps 2. Status post renal transplant Postoperative diagnosis: 1. 3 mm polyp the ascending colon removed with Jumbo forceps 2. 2 x 3 cm partially circumferential lesion in the transverse colon biopsied, tattooed 3. 2 mm rectal polyp removed with Jumbo forceps 4. Diverticulosis and the sigmoid descending and distal transverse colon 5. Grade 2 internal hemorrhoids Medications: Monitored anesthesia care Preanesthesia Assessment An H and P was performed/updated and the Px?s ASA class is 3. The procedure was discussed in detail with the patient. The potential risks and complications including infection, bleeding, missed lesions, perforation, need for surgery in case of perforation, prolonged hospital stay, and were explained. A brief question and answer period was allotted and once all questions were answered, informed consent was obtained. The patient was brought back to the procedure room and placed on standard monitoring. The patient?s vital signs were monitored continuously throughout the entire procedure. Prior to starting, a timeout was performed to confirm the patient?s identity, allergies, medications, and procedure. Procedure in detail The patient was placed in left lateral decubitus position and once adequate sedation was obtained a VETO was performed. The digital rectal examination did not reveal any palpable lesions. The tip of the colonoscope was placed in the anal canal and advanced with some difficulty due to a redundant colon. Abdominal pressure was applied. We were able to advance all the way to the cecum which was identified by the appendiceal orifice and the ileocecal valve. Careful examination of all brown of the colon was performed with irrigation of any residual stool. 3 mm polyp was removed the ascending colon using cold forceps. We encountered a large flat lesion in the transverse colon measuring 2 x 3 cm. This lesion was approximately 50% circumferential. It did span 2 separate folds. Due to the size of the lesion and the quality of the prep we biopsied to rule out dysplasia. A tattoo was placed proximal and distal to this lesion. 2 mm polyp was removed from the rectum using Jumbo forceps. Scattered large diverticulosis were noted in the sigmoid, descending colon and distal transverse colon. Grade 2 internal hemorrhoids were noted on retroflexion. The patient tolerated the procedure well and will be brought back to the recovery area to be discharged once criteria are met. The prep was judged to be fair and at times inadequate to identify polyps less than 6 mm. The withdrawal time was 22min. Complications There were no complications and estimated blood loss was minimal. Recommendations: Resume previous diet Continue outPx medications Follow up pathology results, if the transverse colon lesion has dysplasia surgical intervention is recommended. If not we could consider removal by an advanced endoscopy team Repeat colonoscopy will be determined after pathology results are reviewed. Recommended additional dose of preparation for any follow-up exams. An emergency contact number was given to the patient for any complications related to the procedure
== END 2022-02-18 10:20 | disposition home or self-care (01) ==
PROVIDERS: Student in an Organized Health Care Education/Training Program; PCP Family Medicine; Referring Provider Internal Medicine Gastroenterology; Visit Provider Internal Medicine Gastroenterology
PROC: 0DJD8ZZ Inspection of Lower Intestinal Tract, Via Natural or Artificial Opening Endoscopic (ICD-10-PCS; CPT 45378; principal; 2022-02-18 09:00)
DX: Z12.11 Encounter for screening for malignant neoplasm of colon (principal); Z86.010 Personal history of colon polyps; Z94.0 Kidney transplant status; E11.9 Type 2 diabetes mellitus without complications; Z79.4 Long term (current) use of insulin; Z79.84 Long term (current) use of oral hypoglycemic drugs; K57.30 Diverticulosis of large intestine without perforation or abscess without bleeding; K64.1 Second degree hemorrhoids; D12.2 Benign neoplasm of ascending colon; D12.3 Benign neoplasm of transverse colon; K62.1 Rectal polyp
CPT/HCPCS: 45381; 45380; J2704

== ENCOUNTER → 2022-06-01 16:36 | Outpatient (CLI) | payer OTHER, SELFPAY ==
[2022-06-01 17:45] LABS: Hemoglobin A1C% w Est Avg Glu 7.1 % (4.0-6.0)
[2022-06-01 18:09] LABS: Alanine Aminotransferase 37 IU/L (<50); Albumin 4.2 g/dL (3.5-5.0); Albumin Globulin Ratio 1.3 (1.0-2.8); Alkaline Phosphatase 45 U/L (38-126); Aspartate Aminotransferase 29 IU/L (17-59); BUN Creatinine Ratio 18.7 (6-22); Bilirubin Total 0.7 mg/dL (0.2-1.3); Blood Urea Nitrogen 14 mg/dL (9-20); Calcium 9.1 mg/dL (8.4-10.2); Carbon Dioxide 27 mmol/L (22-32); Chloride 101 mmol/L (98-107); Estimated Glomerular Filt Rate > 60 mL/min (>60); Globulin 3.2 g/dL (1.7-4.1); Glucose 168 mg/dL (80-110); HEMOLYSIS < 15 (0-50); Potassium 4.1 mmol/L (3.4-5.1); Sodium 139 mmol/L (137-145); Total Protein 7.4 g/dL (6.3-8.2)
== END ==
PROVIDERS: PCP Family Medicine; Referring Provider Family Medicine; Visit Provider Family Medicine
DX: Z01.812 Encounter for preprocedural laboratory examination (principal); E11.65 Type 2 diabetes mellitus with hyperglycemia
CPT/HCPCS: 36415; 80053; 83036

== ENCOUNTER → 2022-06-02 09:08 | Outpatient (CLI) | payer OTHER, SELFPAY ==
--- NOTE | 2022-06-02 09:09 | DI.CT.S_ITS ---
PROCEDURE: CT ABDOMEN PELVIS W CON INDICATIONS: laterally spreading colon polyp TECHNIQUE: After the administration of oral and intravenous contrast, axial sections were acquired from the lung bases to the pubic symphysis. Coronal and sagittal reformats were performed. For radiation dose reduction, the following was used: automated exposure control, adjustment of mA and/or kV according to patient size. COMPARISON:Outside Facility, RG, CT ANGIO ABDOMEN / PELVIS W, 03/04/2021, 13:12. FINDINGS: Image quality: Excellent. Lung bases: 5 x 6 millimeter subpleural nodule in the medial aspect of the right lung base is stable compared to prior CT scan. Heart: No significant findings. ABDOMEN: Liver: Diffuse fatty infiltration of the liver. Gallbladder: Unremarkable. Biliary ducts: Unremarkable. Pancreas: Unremarkable. Spleen: Unremarkable. Adrenal Glands: Unremarkable. Kidneys and Ureters: Transplant kidney noted in the right pelvis. [place] kidneys are severely atrophied and nonfunctioning. Stomach and Bowel: Stomach, small bowel loops, and colon are unremarkable. Scattered colonic diverticuli without evidence of diverticulitis. Normal appendix. Peritoneum: No abnormal intraperitoneal fluid. No free air. Ventral Wall: No hernia. Abdominal Nodes: No retroperitoneal or mesenteric adenopathy by size criteria. Vessels: Aorta and inferior vena cava are normal in size. PELVIS: Pelvic Organs: Unremarkable. Bladder: Unremarkable. Pelvic Nodes: No enlarged lymph nodes. Miscellaneous: No inguinal hernias are seen. Multiple surgical clips involving the left pelvic sidewall. Bones: Spine degenerative disc disease and facet arthropathy. IMPRESSION: No abnormal mass involving the abdomen or pelvis. No lymphadenopathy based on size criteria. 5 x 6 millimeter nodule in the right lung base is stable compared to March 04, 2021. Continued follow-up based on criteria outlined below recommended. Status post renal transplant. Colonic diverticulosis without evidence of diverticulitis. Hepatic steatosis. Fleischner Society criteria for SOLID lung nodule followup. Nodule size (mm)Low-risk patientHigh-risk patient<6 (single or multiple)No routine followup.Optional CT at 12 months. 6-8 (single or multiple)CT at 6-12 months, then optional CT at 18-24 mo.CT at 6-12 months, then CT at 18-24 months. >8 (single)CT at 3 months, PET-CT, or biopsy. Same as for low-risk pts. >8 (multiple)CT at 3-6 months, then optional CT at 18-24 mo.CT at 3-6 months, then CT at 18-24 months. Recommendations do not apply to lung cancer screening, patients with immunosuppression, or patients with known primary cancer. Dictated by: Consuelo Simpson MD, PhD on 06/02/2022 at 13:40 Approved by: Consuelo Simpson MD, PhD on 06/02/2022 at 13:50
== END ==
PROVIDERS: PCP Family Medicine; Referring Provider Family Medicine; Visit Provider Family Medicine
DX: D36.9 Benign neoplasm, unspecified site (principal); K57.90 Diverticulosis of intestine, part unspecified, without perforation or abscess without bleeding; K76.0 Fatty (change of) liver, not elsewhere classified; R91.1 Solitary pulmonary nodule; Z94.0 Kidney transplant status
CPT/HCPCS: 74177

== ENCOUNTER → 2023-07-30 10:53 | Outpatient (CLI) | payer OTHER, SELFPAY ==
--- NOTE | 2023-07-30 | DI.RAD.S_ITS ---
PROCEDURE: XR CHEST 2V INDICATIONS: hypertension TECHNIQUE: 2 views of the chest were acquired. COMPARISON: [facility], CR, XR CHEST 2V, 09/21/2019, 14:12. FINDINGS: Surgical changes and devices: None. Lungs and pleura: Left basilar scars and atelectasis. No focal infiltrate or consolidation. No pleural effusions or pneumothorax. Mediastinum: Mediastinal contours are normal. Heart size is normal. Bones and chest wall: No suspicious bony abnormalities. Soft tissues appear unremarkable. IMPRESSION: Left basilar scars and atelectasis. No acute cardiopulmonary abnormality is seen. Dictated by: Rex Santoro M.D. on 07/30/2023 at 16:23 Approved by: Rex Santoro M.D. on 07/30/2023 at 16:23
--- NOTE | 2023-07-30 | DI.RAD.S_ITS ---
Bone Density Report Name: MARI GIBBS Age: 63 Sex: Male Ethnicity: White Date of : 1960 Indication: Referring Provider: RYLIE CHACKO Study: Bone densitometry was performed. Exam Date: July 30, 2023 Accession number: [id number] Bone Density: Region BMD T-score Z-score Classification AP Spine(L1-L4) 1.342 2.7 3.0 Normal Femoral Neck (Left) 1.002 1.4 1.5 Normal Total Hip (Left) 1.179 1.9 1.4 Normal Femoral Neck (Right) 1.006 1.4 1.5 Normal Total Hip (Right) 1.216 2.2 1.7 Normal Total Hip Mean 1.198 2.1 1.6 Normal World Health Organization criteria for BMD impression classify patients as: Normal (T-score at or above -1.0), Osteopenia (T-score between -1.0 and -2.5), or Osteoporosis (T-score at or below -2.5). 10-year Fracture Risk: FRAX not reported because: All T-scores for Spine Total, Hip Total, Femoral Neck at or above -1.0 Previous Exams: -- Region Exam Age BMD T-score BMD Change BMD Change Date g/cm2 vs Baseline vs Previous -- AP Spine (L1-L4) 07/30/2023 63 1.342 2.7 -0.034 (-2.4%)# -0.041 (-3.0%)# 09/21/2019 59 1.382 3.0 0.007 (0.5%) 0.007 (0.5%) 07/16/2017 57 1.375 3.0 Total Hip(Left) 07/30/2023 63 1.179 1.9 0.110 (10.3%)# 0.065 (5.9%)# 09/21/2019 59 1.114 1.4 0.045 (4.2%)* 0.045 (4.2%)* 07/16/2017 57 1.069 1.0 Total Hip(Right) 07/30/2023 63 1.216 2.2 0.004 (0.3%)# 0.042 (3.5%)# 09/21/2019 59 1.175 1.9 -0.037 (-3.1%)* -0.037 (-3.1%)* 07/16/2017 57 1.212 2.2 -- *Denotes significance at 95% confidence level, LSC for AP Spine = 0.022 g/cm2, LSC for Total Hip = 0.027 g/cm2 # Denotes dissimilar scan types or analysis methods Impression: The patient has normal bone mass. No significant bone loss was observed. Discussion: BONE DENSITY IS ABOVE THE MINIMUM DESIRABLE LEVEL AT ALL SKELETAL SITES TESTED. This patient's bone mineral density is above the minimum desirable level (T-score -1.0 or better) at all sites measured. The patient should follow a healthful lifestyle (good nutrition with adequate calcium and vitamin D, and appropriate weight-bearing exercise). Follow-Up: Consider repeating this study in 5 years or sooner if there is some new clinical indication. Reported by: ADRYAN XIAO M.D. on 07/30/2023 11:30:00 AM.
== END ==
PROVIDERS: PCP Family Medicine; Referring Provider Family Medicine; Visit Provider Family Medicine
DX: D84.9 Immunodeficiency, unspecified (principal); Z94.0 Kidney transplant status; I10 Essential (primary) hypertension
CPT/HCPCS: 71046; 77080

== ENCOUNTER → 2023-10-23 09:43 | Outpatient (CLI) | payer OTHER, SELFPAY ==
--- NOTE | 2023-10-23 09:44 | DI.CT.S_ITS ---
PROCEDURE: CT CHEST WO CON INDICATIONS: CHEST WO CON TECHNIQUE: Noncontrast 5 mm thick sections acquired from the pulmonary apices to the posterior costophrenic angles. 1 mm lung window, 5 mm thick coronal and sagittal and 7 mm axial MIP reformats were then acquired. For radiation dose reduction, the following was used: automated exposure control, adjustment of mA and/or kV according to patient size. COMPARISON: [facility], CT, CT ABDOMEN PELVIS W CON, 06/02/2022, 10:29. FINDINGS: Image quality: Diagnostic. Lower Neck: No enlarged lymph nodes. Thyroid: No thyroid nodules which require sonographic follow up, per consensus guidelines. Axillae: No enlarged lymph nodes. Chest Wall: Unremarkable. Bones: No acute fractures. No aggressive appearing lytic or blastic osseous lesions. [id number]-eg-ngcafnhi multilevel degenerative changes of the spine. Lungs and Pleura: No pneumothorax or pleural effusions. Compared to CT chest dated June 02, 2022, right lower lobe medial solid pulmonary nodule has increased in size measuring 1.1 x 0.9 cm (3/249, previously 0.6 x 0.6 cm (3/). Two additional right lower lobe solid pulmonary nodules measuring 0.3 cm (3/195, 198). Heart: Heart size is normal. No pericardial effusion. Mild LAD coronary vessel calcifications. Thoracic Vessels: The aorta and pulmonary arteries demonstrate normal size. 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 Mediastinum and Terra: No enlarged lymph nodes. Esophagus: No wall thickening. No hiatal hernia. Upper Abdomen: Visualized upper abdomen solid organs and bowel loops appear normal. Mild calcification of the abdominal aorta. IMPRESSION: 1. Compared to CT chest dated June 02, 2022, right lower lobe medial solid pulmonary nodule has increased in size measuring 1.1 x 0.9 cm, previously 0.6 x 0.6 cm. Differential includes an indolent malignancy versus nodular scarring. Given location, biopsy is difficult. Recommend a PET-CT for further evaluation. 2. Two additional right lower lobe solid pulmonary nodules measuring 0.3 cm. 3. 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 Dictated by: Melchor Solomon M.D. on 10/23/2023 at 11:34 Approved by: Melchor Solomon M.D. on 10/23/2023 at 11:43
[2023-10-23 11:50] LABS: Hemoglobin A1C% w Est Avg Glu 7.4 % (4.0-6.0)
[2023-11-02 20:35] LABS: Testosterone, Total 280.1 ng/dL (264.0-916.0)
== END ==
LOC: CT 09:43
PROVIDERS: PCP Family Medicine; Referring Provider Family Medicine; Visit Provider Family Medicine
DX: I82.211 Chronic embolism and thrombosis of superior vena cava (principal); I82.721 Chronic embolism and thrombosis of deep veins of right upper extremity; R91.8 Other nonspecific abnormal finding of lung field; R68.82 Decreased libido; E11.65 Type 2 diabetes mellitus with hyperglycemia; I25.10 Atherosclerotic heart disease of native coronary artery without angina pectoris
CPT/HCPCS: 36415; 71250; 83036; 84402; 84403

== ENCOUNTER → 2024-05-19 11:40 | Outpatient (CLI) | payer OTHER, SELFPAY ==
[2024-05-19 12:44] LABS: Add Manual Diff / Slide Review NO; Basophils Absolute Auto 100 /uL (0-100); Basophils Percent Auto 0.7 % (0-2); Eosinophils Absolute Auto 100 /uL (0-450); Hemoglobin 15.1 g/dL (13.5-17.5); Lymphocytes Absolute Auto 2200 /uL (1100-4500); Lymphocytes Percent Auto 23.9 % (25-40); Mean Corpuscular Hemoglobin 32.3 PG (26-34); Mean Corpuscular Volume 92.2 fL (80-100); Monocytes Absolute Auto 700 /uL (0-900); Monocytes Percent Auto 7.8 % (3-14); Neutrophils Absolute Auto 6000 /uL (1500-7000); Neutrophils Percent Auto 66.6 % (50-75); Platelet Count 309 X10^3/uL (150-400); Red Blood Cell Count 4.67 X10^6/uL (4.5-5.9); Red Cell Distribution Width 13.7 % (11.6-14.8)
[2024-05-19 13:04] LABS: Alanine Aminotransferase 32 IU/L (<50); Albumin 4.2 g/dL (3.5-5.0); Albumin Globulin Ratio 1.6 (1.0-2.8); Alkaline Phosphatase 48 U/L (38-126); Aspartate Aminotransferase 28 IU/L (17-59); Bilirubin Unconjugated 0.8 mg/dL (0.0-1.1); C-Reactive Protein Quant < 0.5 mg/dL (<1.0); Globulin 2.7 g/dL (1.7-4.1); HEMOLYSIS < 15 (0-50); Total Protein 6.9 g/dL (6.3-8.2)
[2024-05-19 13:24] LABS: Erythrocyte Sedimentation Rate 4 MM/HR (0-15)
== END ==
PROVIDERS: PCP Family Medicine; Referring Provider Ophthalmology; Visit Provider Ophthalmology
DX: H31.8 Other specified disorders of choroid (principal)
CPT/HCPCS: 36415; 80076; 85025; 85651; 86140; 86480

== ENCOUNTER → 2024-05-22 11:55 | Outpatient (CLI) | payer OTHER, SELFPAY ==
[2024-05-24 02:08] LABS: Toxoplasma gohndii IgG 4.6 IU/mL (0.0-7.1); Toxoplasma gondii IgM <3.0 AU/mL (0.0-7.9)
[2024-05-24 05:14] LABS: RPR Screen Non Reactive (Non Reactive)
== END ==
PROVIDERS: PCP Family Medicine
DX: H31.8 Other specified disorders of choroid (principal)
CPT/HCPCS: 36415; 86592; 86777; 86778; 86780

== ENCOUNTER → 2024-05-27 08:37 | Outpatient (CLI) | payer OTHER, SELFPAY ==
--- NOTE | 2024-05-27 | DI.MRI.S_ITS ---
PROCEDURE: MR OPTIC NRV WWO CON INDICATIONS: ocular mass left side TECHNIQUE: Noncontrast sagittal T1 spin echo, axial FLAIR, axial gradient echo, axial diffusion and ADC acquired through the brain. Coronal STIR, thin-slice axial T1 spin echo through the orbits. After the administration of contrast, thin-slice axial and coronal T1 spin echo with fat saturation through the orbits, axial and coronal and sagittal T1 spin echo with fat saturation through the brain. COMPARISON: None. FINDINGS: Image quality: This examination is limited by involuntary motion artifact. Orbits: There is an enhancing mass seen along the medial aspect of the left globe, as on series 13, image 6 and on series 14, image 6, measuring up to 8 mm. Note is made of bilateral lens replacements. The optic nerves are normal in size, without abnormal signal or enhancement. No retrobulbar masses or fat abnormalities. The extra-ocular muscles are normal and symmetric in appearance. Lacrimal glands are normal. Optic chiasm is normal. Periorbital soft tissues appear normal. CSF spaces: Ventricles are normal in size and shape. Basal cisterns are patent. No extra-axial fluid collections. Brain: No intracranial bleeds or mass effects. No abnormal intracranial enhancement. Fang-white matter interface is intact. Diffusion weighted images demonstrate no acute ischemic insults. Pituitary gland appears normal, without sellar or suprasellar masses. Brainstem appears normal. Normal intravascular flow voids are present. Skull and face: Calvarial marrow is normal in signal. Sinuses: There is near complete opacification of the left maxillary sinus. Milder mucosal thickening can be seen elsewhere within the paranasal sinuses. There is moderate left-sided mastoid air cell fluid seen. IMPRESSION: There is an 8 mm enhancing mass seen involving the left globe itself medially. Focal left maxillary sinus disease seen. Although neoplastic involvement is possible, this is felt most likely to be related to benign paranasal sinus disease. Moderate left-sided mastoid air cell fluid can also be seen. Dictated by: Joe Petty M.D. on 05/29/2024 at 10:53 Approved by: Joe Petty M.D. on 05/29/2024 at 10:57
== END ==
LOC: MRI 08:39
PROVIDERS: PCP Family Medicine; Referring Provider Ophthalmology; Visit Provider Ophthalmology
DX: H31.8 Other specified disorders of choroid (principal); H44.9 Unspecified disorder of globe; J32.8 Other chronic sinusitis
CPT/HCPCS: 70543; 70553; A9579

== ENCOUNTER → 2024-06-06 12:35 | Outpatient (CLI) | payer OTHER, SELFPAY ==
[2024-06-08 12:23] LABS: QuantiFERON Mitogen Value >10.00 IU/mL (.); QuantiFERON Nil Value 0.05 IU/mL (.); QuantiFERON TB Gold Plus Negative (Negative); QuantiFERON TB1 Ag Value 0.17 IU/mL (.); QuantiFERON TB2 Ag Value 0.07 IU/mL (.)
== END ==
PROVIDERS: PCP Family Medicine; Referring Provider Ophthalmology; Visit Provider Ophthalmology
DX: H31.8 Other specified disorders of choroid (principal)
CPT/HCPCS: 36415; 86480